=== PATIENT | female | born 1950 | race Caucasian/White ===

== ENCOUNTER 2022-02-21 11:21 | Outpatient (CLI) | payer MEDICARE | END 2022-02-21 11:22 | disposition home or self-care (01) | LOC: CSHRAD 11:21 | PROVIDERS: ATTEND Internal Medicine Rheumatology | DX: M25.552 Pain in left hip (principal) ==

== ENCOUNTER 2022-04-04 10:09 | Outpatient (CLI) | payer MEDICARE | END 2022-04-04 10:10 | disposition home or self-care (01) | LOC: CSHCP 10:09 | PROVIDERS: ATTEND Internal Medicine | DX: R91.1 Solitary pulmonary nodule (principal); R94.2 Abnormal results of pulmonary function studies | CPT/HCPCS: 94060; 94726; 94729; 94760 ==

== ENCOUNTER 2023-03-06 11:10 | Outpatient (CLI) | payer MEDICARE | END 2023-03-06 11:11 | disposition home or self-care (01) | LOC: CSHMAMMO 11:10 | PROVIDERS: ATTEND Internal Medicine | DX: Z12.31 Encounter for screening mammogram for malignant neoplasm of breast (principal) | CPT/HCPCS: 77063; 77067 ==

== ENCOUNTER 2024-12-17 11:02 | Outpatient (CLI) | payer MEDICARE ==
[~2024-12-17 11:02] MED LIST: Iopamidol 300 61% 100 ML VIAL FS ONE
[2024-12-17 12:06] LABS: Estimated GFR - POC 40.0
== END 2024-12-17 11:03 | disposition home or self-care (01) ==
LOC: CSHCT 11:02
PROVIDERS: ATTEND Radiology Radiation Oncology
DX: C85.90 Non-Hodgkin lymphoma, unspecified, unspecified site (principal); R91.8 Other nonspecific abnormal finding of lung field; K82.9 Disease of gallbladder, unspecified
CPT/HCPCS: 36415; 71260; 74177; 82565